=== PATIENT | male | born 1975 | race Caucasian/White ===

== ENCOUNTER 2018-04-24 18:47 | Emergency (ER) | payer MEDICAID ==
[2018-04-24] MEDS: hydrOXYzine PAMOATE 25 MG CAP PO (23:31)
== END 2018-04-25 01:46 | disposition home or self-care (01) ==
LOC: E/R 04-25 01:46
DX: F41.9 Anxiety disorder, unspecified (principal); R40.2142 Coma scale, eyes open, spontaneous, at arrival to emergency department; R40.2362 Coma scale, best motor response, obeys commands, at arrival to emergency department; R40.2252 Coma scale, best verbal response, oriented, at arrival to emergency department; F17.210 Nicotine dependence, cigarettes, uncomplicated
CPT/HCPCS: 93005; 99283-25

== ENCOUNTER 2018-09-12 19:14 | Emergency (ER) | payer MEDICAID | END 2018-09-12 23:03 | disposition home or self-care (01) | LOC: FTE 19:14 | DX: F41.9 Anxiety disorder, unspecified (principal); R06.02 Shortness of breath | CPT/HCPCS: 93005; 99283-25 ==